=== PATIENT | female | born 1975 | race Two or more races ===

== ENCOUNTER 2023-08-30 14:22 | Emergency (ER) | payer OTHER ==
[~2023-08-30] VITALS: Ht 162.6 cm; Wt 90.8 kg
[2023-08-30 16:27] VITALS: BP 138/80; PULSE 99; RESP 16; O2SAT 98
[2023-08-30 16:40] VITALS: TEMP 99.2
[2023-08-30] MEDS: IBUPROFEN 600 MG TAB PO ONE (16:40)
[2023-08-30] MEDS ORDERED: IBUP1TAB5 PO (16:53)
== END 2023-08-30 17:32 | disposition home or self-care (01) ==
LOC: ER 14:22
DX: S80.12XA Contusion of left lower leg, initial encounter (principal); Z88.0 Allergy status to penicillin; Y04.2XXA Assault by strike against or bumped into by another person, initial encounter; Y93.89 Activity, other specified; Y92.218 Other school as the place of occurrence of the external cause; Y99.8 Other external cause status
CPT/HCPCS: 73590